=== PATIENT | female | born 1990 | race African-American/Black ===

== ENCOUNTER 2017-07-23 17:55 | Emergency (ER) | payer SELFPAY ==
[2017-07-23] MEDS ORDERED: Ibuprofen 800 MG TAB ONE (18:32)
--- NOTE | 2017-07-23 18:51 | RAD ---
UPRIGHT PORTABLE CHEST ONE VIEW: 07/23/17 HISTORY: 26-year-old female with fever and cough for three days. Getting worse. Heart size is normal. The lungs are clear. No pneumonia, edema, pleural effusion or other acute proce ss. IMPRESSION: No acute intrathoracic disease. No evidence for pneumonia. POS: [facility]
== END 2017-07-23 20:13 | disposition home or self-care (01) ==
LOC: ERS 17:55
DX: J06.9 Acute upper respiratory infection, unspecified (principal)
CPT/HCPCS: 71010

== ENCOUNTER 2018-07-16 11:50 | Emergency (ER) | payer OTHER, SELFPAY ==
--- NOTE | 2018-07-16 13:22 | RAD ---
TWO VIEWS OF THE CHEST: COMPARISON: 07/23/2017. HISTORY: Dry cough and fever for 4 days. FINDINGS: Two views of the chest show normal sized cardiomediastinal silhouette. There is no evidence of consol idation, mass, or pleural effusion. The bones are unremarkable. IMPRESSION: No evidence of acute cardiopulmonary disease. POS: [facility]
== END 2018-07-16 13:12 | disposition home or self-care (01) ==
LOC: ERS 11:50
DX: J06.9 Acute upper respiratory infection, unspecified (principal)
CPT/HCPCS: 71046; 87804